=== PATIENT | male | born 1945 | race Caucasian/White ===

== ENCOUNTER 2018-11-18 14:53 | Emergency (ER) | payer MEDICARE, MEDICAID ==
--- NOTE | 2018-11-18 15:16 | ER Document Report ---
ED General - General Chief Complaint: Chest Pain Stated Complaint: CHEST PAIN Time Seen by Provider: 11/18/18 15:05 Primary Care Provider: DIANA LOPEZ MD [Primary Care Provider] - Follow up as needed - [facility] Notes: Patient presents with what he states his chest discomfort not chest pain that started approximately 11 AM this morning with slight shortness of breath. He had a TAVR procedure done Wednesday this week and provided health and was discharged on Wednesday with no complications. He has been taking all of his medications as prescribed. He states that right now he has a slight discomfort in the mid sternal epigastric area but denies any shortness of breath at this time. - Related Data Allergies/Adverse Reactions: No Known Allergies Allergy (Unverified 11/18/18 16:08) Past Medical History - Social History Smoking Status: Unknown if Ever Smoked Family History: Reviewed & Not Pertinent Review of Systems - Review of Systems Constitutional: No symptoms reported EENT: No symptoms reported Cardiovascular: See HPI Respiratory: No symptoms reported Gastrointestinal: No symptoms reported Genitourinary: No symptoms reported Male Genitourinary: No symptoms reported Musculoskeletal: No symptoms reported Skin: No symptoms reported Hematologic/Lymphatic: No symptoms reported Neurological/Psychological: No symptoms reported Physical Exam - Vital signs Vitals: Pulse Ox 97 11/18/18 14:54 - General General appearance: Appears well, Alert - HEENT Head: Normocephalic, Atraumatic Eyes: Normal Pupils: PERRL - Respiratory Respiratory status: No respiratory distress Chest status: Nontender Breath sounds: Normal Chest palpation: Normal - Cardiovascular Rhythm: Regular Heart sounds: Normal auscultation Murmur: No Systolic murmur grade 1-6: 2 - Abdominal Inspection: Normal Distension: No distension Bowel sounds: Normal Tenderness: Nontender - Back Back: Normal, Nontender - Extremities General upper extremity: Normal inspection, Normal ROM General lower extremity: Normal inspection, Normal ROM - Neurological Neuro grossly intact: Yes Cognition: Normal Orientation: AAOx4 Course - Re-evaluation Re-evalutation: 11/18/18 17:[address] Wagner Teague patient's doctor who performed TAVR. Will transfer patient for observation back to [facility] 11/18/18 20:43 Repeat troponin shows elevation reevaluation of patient is resting comfortably states that his pain is almost nonexistent every now and then just a small twinge in mid center epigastric region. Will provide nitro to see if this helps relieve his symptoms other though he states that they are most nonexistent. 11/18/18 22:21 Nurse informed me that patient was sleeping comfortably when awoken states he had no chest pain at this time. 11/18/18 23:36 Patient was evaluated by me at time of transfer is hemodynamically stable and denies any chest pain at this time. - Vital Signs Vital signs: Temp Pulse Resp BP Pulse Ox 98.1 F 92 15 149/63 H 94 11/18/18 23:30 11/18/18 23:30 11/18/18 23:30 11/18/18 23:30 11/18/18 23:30 - Laboratory Result Diagrams: 11/18/18 15:15 11/18/18 15:15 Laboratory results interpreted by me: 11/18/18 15:15 Sodium 135.0 L Glucose 142 H Discharge - Discharge Clinical Impression: Chest discomfort Condition: Good Disposition: [facility] Admitting Provider: [facility] Unit Admitted: [facility] Referrals: DIANA LOPEZ MD [Primary Care Provider] - Follow up as needed
[2018-11-18 15:29] LABS: INTERNATIONAL RATION (INR) 1.11; PROTHROMBIN TIME 14.3 SEC (11.4-15.4)
[2018-11-18 15:32] LABS: ABSOLUTE EOSINOPHILS # (AUTO) 0.1 10^3/uL (0.0-0.6); ABSOLUTE LYMPHOCYTES (AUTO) 0.9 10^3/uL (0.5-4.7); ABSOLUTE MONOCYTES (AUTO) 0.5 10^3/uL (0.1-1.4); BASOPHILS % (AUTO) 0.6 % (0-2); EOSINOPHILS % (AUTO) 2.4 % (0-6); HEMOGLOBIN 15.4 g/dL (13.5-17.0); LYMPHOCYTES % (AUTO) 16.3 % (13-45); MEAN CORPUSCULAR HEMOGLOBIN 30.3 pg (27.0-33.4); MEAN CORPUSCULAR HGB CONC 34.1 g/dL (32.0-36.0); MEAN CORPUSCULAR VOLUME 89 fl (80-97); MONOCYTES % (AUTO) 9.8 % (3-13); PLATELET COUNT 221 10^3/uL (150-450); RED BLOOD COUNT 5.07 10^6/uL (4.35-5.55); RED CELL DISTRIBUTION WIDTH 13.4 % (11.5-14.0); SEGMENTED NEUTROPHILS % (AUTO) 70.9 % (42-78); TOTAL CELLS COUNTED % (AUTO) 100 %; WHITE BLOOD COUNT 5.6 10^3/uL (4.0-10.5)
[2018-11-18 15:42] LABS: ALBUMIN 3.8 g/dL (3.5-5.0); ALKALINE PHOSPHATASE 66 U/L (38-126); ANION GAP 9 (5-19); ASPARTATE AMINO TRANSFERASE 44 U/L (17-59); BILIRUBIN,DIRECT 0.1 mg/dL (0.0-0.4); BILIRUBIN,TOTAL 0.4 mg/dL (0.2-1.3); BLOOD UREA NITROGEN 19 mg/dL (7-20); CALCIUM 8.4 mg/dL (8.4-10.2); CARBON DIOXIDE 27 mmol/L (22-30); CHLORIDE 99 mmol/L (98-107); GLUCOSE 142 mg/dL (75-110); POTASSIUM 4.3 mmol/L (3.6-5.0); TOTAL PROTEIN 6.7 g/dL (6.3-8.2)
--- NOTE | 2018-11-18 16:02 | RADIOLOGY REPORT (SQ) ---
EXAM DESCRIPTION: CHEST SINGLE VIEW COMPLETED DATE/TIME: 11/18/2018 3:51 pm REASON FOR STUDY: chest pain COMPARISON: None. EXAM PARAMETERS: NUMBER OF VIEWS: One view. TECHNIQUE: Single frontal radiographic view of the chest acquired. RADIATION DOSE: NA LIMITATIONS: None. FINDINGS: LUNGS AND PLEURA: Suboptimal visualization of the lateral left lung base due to overlying soft tissue. No opacities, masses or pneumothorax. No pleural effusion. MEDIASTINUM AND HILAR STRUCTURES: No masses. Contour normal. HEART AND VASCULAR STRUCTURES: Heart upper limits of normal in size. Normal vasculature. BONES: No acute findings. HARDWARE: None in the chest. OTHER: No other significant finding. IMPRESSION: NO ACUTE RADIOGRAPHIC FINDING IN THE CHEST. TECHNICAL DOCUMENTATION: JOB ID: [id number] [employer]- All Rights Reserved Reading location - IP/workstation name: [email or web address]
--- NOTE | 2018-11-18 16:32 | RADIOLOGY REPORT (SQ) ---
EXAM DESCRIPTION: CTA CHEST COMPLETED DATE/TIME: 11/18/2018 4:19 pm REASON FOR STUDY: recent tavr, r/o leak and PE CHEST PAIN COMPARISON: AP CHEST 11/18/2018 TECHNIQUE: CT scan of the chest performed using helical scanning technique with dynamic intravenous contrast injection. Images reviewed with lung, soft tissue and bone windows. Reconstructed coronal and sagittal MPR images reviewed. Additional 3 dimensional post-processing performed to develop Maximal Intensity Projection images (ND P). All images stored on PACS. All CT scanners at this facility use dose modulation, iterative reconstruction, and/or weight based d osing when appropriate to reduce radiation dose to as low as reasonably achievable (ALARA). [facility]: Dose Right [facility]: CareDose [facility]: Dose Right [facility]: Teradose 4D [facility]: MusiCares CONTRAST TYPE AND DOSE: contrast/concentration: Isovue 350.00 mg/ml; Total Contrast Delivered: 80.0 ml; Total Saline Delivered: 77.0 ml Contrast bolus optimized for the pulmonary arteries and thoracic aorta. RENAL FUNCTION: 1.0 CREATININE RADIATION DOSE: CT Rad equipment meets quality standard of care and radiation dose reduction techniq ues were employed. CTDIvol: 19.8 - 33.5 mGy. DLP: 1162 mGy-cm. . LIMITATIONS: None. FINDINGS: LUNGS AND PLEURA: No masses, infiltrates, or pneumothorax. No pleural effusions or pleura l calcifications. AORTA AND GREAT VESSELS: No thoracic aortic aneurysm or dissection. Patient is post aortic valve rep lacement with prosthesis along the aortic root HEART: No pericardial effusion. No significant coronary artery calcifications. Calcified mitral bria jomar PULMONARY ARTERIES: No emboli visualized in the main pulmonary arteries or the segmental branches. HILAR AND MEDIASTINAL STRUCTURES: No identified masses or abnormal nodes. Small hiatal hernia HARDWARE: Aortic valve replacement with prosthesis along the aortic root UPPER ABDOMEN: Stones in the gallbladder without gross gallbladder wall thickening THYROID AND OTHER SOFT TISSUES: Right-sided gynecomastia BONES: No acute or significant finding. 3D MIPS: Confirm above findings. OTHER: Findings called to Dr. Cartwright in the emergency room IMPRESSION: NORMAL CTA OF THE CHEST. NO PULMONARY EMBOLI. NO THORACIC AORTIC DISSECTION COMMENT: Quality ID # [id number]: Final reports with documentation of one or more dose reduction techniques (e.g., Automated exposure control, adjustment of the mA and/or kV according to patient size, use of iterative reconstruction technique) TECHNICAL DOCUMENTATION: JOB ID: [id number] [employer]- All Rights Reserved Reading location - IP/workstation name: [email or web address]
[2018-11-18] MEDS ORDERED: ASPIRIN 325 MG TABLET PO ONE (17:41)
[2018-11-18] MEDS ORDERED: NITROGLYCERIN 0.4 MG/TAB 25 TAB/BOTTLE SL PRN (20:42)
[2018-11-18 23:51] VITALS: BP 149/63
--- NOTE | 2018-11-19 09:04 | EKG REPORT ---
SEVERITY:- ABNORMAL ECG - VENTRICULAR-PACED COMPLEXES VS INCOMPLETE LBBB CONSIDER LVH : Confirmed by: Heena Collins 19-Nov-2018 09:04:01
== END 2018-11-18 23:55 | disposition short-term general hospital (02) ==
LOC: ER 14:53
DX: R07.9 Chest pain, unspecified (principal)
CPT/HCPCS: 93005; 36415; 83735; 85025; 85610; 80053; 84484; 71045; 71275; 93010; A9270; 99285